=== PATIENT | male | born 1965 | race Caucasian/White ===

== ENCOUNTER 2020-03-23 07:38 | Day surgery (SDC) | payer MEDICARE ==
[2020-03-23] VITALS (9 sets, daily range): BP systolic 117–156; BP diastolic 74–100; PULSE 16–102; TEMP 97.8
[~2020-03-23] VITALS: Ht 172.8 cm; Wt 78.5 kg
[2020-03-23] MEDS ORDERED: COREG 25MG25 MG/TAB PO (08:17)
[2020-03-23] MEDS ORDERED: PRINIVIL10 MG PO (08:17)
[2020-03-23] MEDS ORDERED: LEVOXYL0.125 MG PO (08:18)
[2020-03-23] MEDS ORDERED: ASPIRIN E.C. 8181 MG PO (08:18)
[2020-03-23] MEDS ORDERED: PEN-VEE K500 MG PO (08:19)
[2020-03-23] MEDS ORDERED: LANOXIN 0.120.125 MG PO (08:20)
[2020-03-23] MEDS ORDERED: TOPROL XL 25MG25 MG PO (08:21)
[2020-03-23] MEDS ORDERED: PRADAXA 150MG150 MG PO (08:22)
[2020-03-23 09:03] LABS: HEMATOCRIT 48.9 % (42.0-52.0); HEMOGLOBIN 16.5 g/dl (13.5-18.0); MEAN CELL VOLUME 93 fl (80.0-100.0); MEAN CORPUSCULAR HEMOGLOBIN 31 pg (27.0-31.0); MEAN CORPUSCULAR HGB CONC 34 g/dl (33.0-37.0); MEAN PLATELET VOLUME 10.7 fl (7.4-10.4); PLATELET COUNT 258 K/mm3 (130-400); RED BLOOD COUNT 5.26 M/mm3 (4.20-5.60); REDCELL DISTRIBUTION WIDTH-CV 14.3 % (11.5-14.5)
[2020-03-23 09:10] LABS: INR 1.1 (0.8-3.0); PROTHROMBIN TIME 11.8 SECONDS (9.7-12.8)
[2020-03-23 09:20] LABS: CALCIUM 9.5 mg/dL (8.4-10.2); CREATININE, serum 1.31 (0.66-1.25); POTASSIUM 4.3 mmol/L (3.4-5.0)
--- NOTE | 2020-03-23 10:40 | NUR ---
SEE MERGE FOR ALL MEDICATION ADMINISTRATION TIMES AND INTRA/POST SEDATION ASSESSMENTS.
--- NOTE | 2020-03-23 13:45 | NUR ---
Pt is ready for discharge at this time. Pt has done well during recovery, he has been V-paced on monitor, without complaints of pain at generator site. Ice to site initially, no swelling or bruising noted. I reviewed dc, rx and fu instructions with pt and , they verb understanding. iv dc'd cath intact. dressing applied. pt to exit via wc
== END 2020-03-23 14:43 | disposition home or self-care (01) ==
LOC: COL.CAR 07:38
PROVIDERS: Internal Medicine Cardiovascular Disease
DX: Z45.010 Encounter for checking and testing of cardiac pacemaker pulse generator [battery] (principal); I50.9 Heart failure, unspecified; I42.9 Cardiomyopathy, unspecified; I44.2 Atrioventricular block, complete; C81.90 Hodgkin lymphoma, unspecified, unspecified site; I48.91 Unspecified atrial fibrillation; I42.8 Other cardiomyopathies; Z86.711 Personal history of pulmonary embolism; Z20.828 Contact with and (suspected) exposure to other viral communicable diseases; Z79.82 Long term (current) use of aspirin; Z79.01 Long term (current) use of anticoagulants; Z79.899 Other long term (current) drug therapy
CPT/HCPCS: J0690; J2250; J3010; J7030